=== PATIENT | male | born 2000 | race Caucasian/White ===

== ENCOUNTER 2022-08-05 19:02 | Inpatient (IN) | payer OTHER ==
[~2022-08-05] VITALS: Ht 185.4 cm; Wt 119.0 kg
[2022-08-05] MEDS ORDERED: ISOVUE-370 76% 100ML VIAL As Ordered ONE (20:57)
[2022-08-05 21:48] LABS: BASO % 0.3 % (0.0-1.0); EOS # 0.2 10^3/uL (0.0-0.5); EOS % 1.9 % (0.0-3.0); HEMATOCRIT 43.7 % (42.0-52.0); LYMPH # 2.4 10^3/uL (1.5-5.0); LYMPH % 22.5 % (24.0-44.0); MEAN CORPUSCULAR HEMOGLOBIN 30.6 pg (27.0-33.0); MEAN CORPUSCULAR HGB CONC 34.3 g/dl (32.0-36.5); MEAN CORPUSCULAR VOLUME 89.2 fl (80.0-96.0); MONO # 0.7 10^3/uL (0.0-0.8); MONO % 6.4 % (2.0-8.0); NEUTROPHILS # 7.4 10^3/uL (1.5-8.5); NEUTROPHILS % 68.4 % (36.0-66.0); PLATELET COUNT, AUTOMATED 147 10^3/uL (150-450); WHITE BLOOD COUNT 10.8 10^3/uL (4.0-10.0)
[2022-08-05 22:04] LABS: INR 1.02; PROTHROMBIN TIME 13.8 SECONDS (12.7-14.5)
[2022-08-05 22:05] LABS: PARTIAL THROMBOPLASTIN TIME 25.7 SECONDS (25.9-37.0)
[2022-08-05] MEDS ORDERED: HEPARIN SOD (PORCINE) 5000UNITS/ML 1ML VIAL/SYRINGE IV ONE (22:40)
[2022-08-05] MEDS ORDERED: HEPARIN DRIP 25,000 UNITS in IV 1 EA IV SCH (22:40)
[2022-08-05] MEDS ORDERED: NAPR220C23 PO (23:04)
[2022-08-05] MEDS ORDERED: HOME MED LIST COMPLETE! XX SCH (23:05)
[2022-08-05] MEDS ORDERED: ACETAMINOPHEN 500 MG TAB PO ONE (23:20)
[2022-08-05 23:51] LABS: BASO % 0.4 % (0.0-1.0); EOS # 0.2 10^3/uL (0.0-0.5); EOS % 1.7 % (0.0-3.0); HEMOGLOBIN 15.2 g/dl (13.5-17.5); LYMPH # 2.2 10^3/uL (1.5-5.0); LYMPH % 19.4 % (24.0-44.0); MEAN CORPUSCULAR HEMOGLOBIN 30.1 pg (27.0-33.0); MEAN CORPUSCULAR HGB CONC 33.8 g/dl (32.0-36.5); MEAN CORPUSCULAR VOLUME 89.1 fl (80.0-96.0); MONO # 0.7 10^3/uL (0.0-0.8); MONO % 6.2 % (2.0-8.0); NEUTROPHILS # 8.1 10^3/uL (1.5-8.5); PLATELET COUNT, AUTOMATED 146 10^3/uL (150-450); RED BLOOD COUNT 5.05 10^6/uL (4.30-6.10); WHITE BLOOD COUNT 11.3 10^3/uL (4.0-10.0)
[2022-08-06 00:02] LABS: INR 1.06; PROTHROMBIN TIME 14.3 SECONDS (12.7-14.5)
[2022-08-06 00:03] LABS: PARTIAL THROMBOPLASTIN TIME 27.1 SECONDS (25.9-37.0)
[2022-08-06] MEDS ORDERED: HEPARIN DRIP 25,000 UNITS in IV 1 EA IV SCH (00:05)
[2022-08-06] MEDS ORDERED: HEPARIN SOD (PORCINE) 5000UNITS/ML 1ML VIAL/SYRINGE IV PRN (00:05)
[2022-08-06 00:07] LABS: RSV AMPLIFICATION NEGATIVE (NEGATIVE)
[2022-08-06 00:20] LABS: CK-MB VALUE MASS 2.4 NG/ML (<3.6); MB/CK RELATIVE INDEX 1.22 (< OR =4)
[2022-08-06 00:22] LABS: BLOOD UREA NITROGEN 12 MG/DL (7-18); CALCIUM LEVEL 9.6 MG/DL (8.5-10.1); CARBON DIOXIDE LEVEL 30 MEQ/L (21-32); CHLORIDE LEVEL 102 MEQ/L (98-107); GLOMERULAR FILTRATION RATE > 60.0 (>60); GLUCOSE, FASTING 95 MG/DL (70-100); POTASSIUM SERUM 4.1 MEQ/L (3.5-5.1); SODIUM LEVEL 136 MEQ/L (136-145)
[2022-08-06 00:26] LABS: ERYTHROCYTE SEDIMENTATION RATE 4 mm/hr (0-15)
[2022-08-06 01:45] VITALS: BP 126/60
[2022-08-06 04:00] VITALS: BP 118/57
[2022-08-06 08:00] VITALS: BP 122/82
[2022-08-06 10:27] LABS: TOTAL PROTEIN,RANDOM URINE 11.5 MG/DL (0.0-12.0)
[2022-08-06 10:44] LABS: ALBUMIN 3.8 GM/DL (3.2-5.2); ALT/SGPT 37 U/L (12-78); BILIRUBIN,DIRECT 0.2 MG/DL (0.0-0.2); BILIRUBIN,TOTAL 0.9 MG/DL (0.2-1.0); BLOOD UREA NITROGEN 12 MG/DL (7-18); CALCIUM LEVEL 9.3 MG/DL (8.5-10.1); CARBON DIOXIDE LEVEL 31 MEQ/L (21-32); CHLORIDE LEVEL 103 MEQ/L (98-107); CHOLESTEROL LEVEL 167 MG/DL (<200); CHOLESTEROL RISK RATIO 2.929 (<5); CREATININE FOR GFR 1.02 MG/DL (0.70-1.30); GLOMERULAR FILTRATION RATE > 60.0 (>60); GLUCOSE, FASTING 89 MG/DL (70-100); HDL CHOLESTEROL 57 MG/DL (>40); LDL CHOLESTEROL 98 MG/DL (<100); NON-HDL-C 110 MG/DL; SODIUM LEVEL 137 MEQ/L (136-145); TOTAL PROTEIN 6.9 GM/DL (6.4-8.2); TRIGLYCERIDES LEVEL 58 MG/DL (<150)
[2022-08-06 12:00] VITALS: BP 122/76
[2022-08-06 12:22] LABS: DRVV SCREEN 45.6 SEC
[2022-08-06 12:26] LABS: HIV 1&2 SCREEN CENTAUR NEGATIVE (NEGATIVE)
[2022-08-06 13:05] LABS: PTT LUPUS TYPE ANTICOAG SCREEN 1.2 (0-1.2)
[2022-08-06 13:23] LABS: INR 1.05; PROTHROMBIN TIME 14.1 SECONDS (12.7-14.5)
[2022-08-06 13:24] LABS: PARTIAL THROMBOPLASTIN TIME 48.6 SECONDS (25.9-37.0)
[2022-08-06 13:41] LABS: DRVV CONFIRM 38.1 SEC; NORMALIZED RATIO 1.2 (0.00-1.20)
[2022-08-06] MEDS ORDERED: ELIQ5TAB PO (15:38)
[2022-08-06 16:00] VITALS: BP 124/72
[2022-08-06] MEDS ORDERED: APIXABAN 5 MG TAB (ELIQUIS) PO SCH (16:00)
[2022-08-07] MEDS ORDERED: ELIQ5TAB PO (10:45)
[2022-08-08 13:07] LABS: HEXAGONAL PHASE PHOSPHOLIPID 5 sec (0-11)
[2022-08-10 16:08] LABS: ANCA-ATYPICAL <1:20 titer (Neg:<1:20); ANTINUCLEAR ANTIBODIES DIRECT Negative (Negative); CYTOPLASMIC NEUTROP AB ANCA-C <1:20 titer (Neg:<1:20); HOMOCYST(E)INE SERUM 10.5 umol/L (0.0-14.5); PERINUCLEAR AB ANCA-P <1:20 titer (Neg:<1:20); PROTEIN C ANTIGEN 70 % (60-150); PROTEIN S ANTIGEN FREE 138 % (61-136); PROTEIN S ANTIGEN TOTAL 144 % (60-150); SJOGREN'S ANTI SS-A <0.2 AI (0.0-0.9); SJOGREN'S ANTI SS-B <0.2 AI (0.0-0.9)
== END 2022-08-06 16:43 | disposition home or self-care (01) | DRG 299 ==
LOC: M ED 19:02 → M ED INP 23:16 → ENRESERV 08-06 00:07 → M PCU 08-06 01:43
PROVIDERS: ADMIT Family Medicine; ATTEND Family Medicine
DX: I82.432 Acute embolism and thrombosis of left popliteal vein (principal); I26.94 Multiple subsegmental thrombotic pulmonary emboli without acute cor pulmonale; I82.412 Acute embolism and thrombosis of left femoral vein; D69.6 Thrombocytopenia, unspecified; Z86.718 Personal history of other venous thrombosis and embolism

== ENCOUNTER → 2022-09-11 | Outpatient (CLI) | payer OTHER ==
[~2022-09-11] MED LIST: ELIQ5TAB PO; NAPR220C23 PO; PROHANCE 279.3MG/ML 15ML VIAL ONE; PROHANCE 279.3MG/ML 5ML VIAL ONE
== END ==
LOC: M PLAIMG 14:48
DX: I80.12 Phlebitis and thrombophlebitis of left femoral vein (principal); M25.462 Effusion, left knee; M94.262 Chondromalacia, left knee; M67.52 Plica syndrome, left knee
CPT/HCPCS: 73723; A9576